=== PATIENT | male | born 1970 | race Two or more races ===

== ENCOUNTER 2023-11-22 08:17 | Outpatient (CLI) | payer OTHER ==
[~2023-11-22 08:17] MED LIST: ATACAND HCT 31 UDTAB PO
== END 2023-11-22 08:20 | disposition home or self-care (01) ==
LOC: SONOGRAMA 08:17
PROVIDERS: ATTEND Pathology Anatomic Pathology & Clinical Pathology
DX: D34 Benign neoplasm of thyroid gland (principal); E07.89 Other specified disorders of thyroid; E04.2 Nontoxic multinodular goiter